=== PATIENT | female | born 1995 | race Two or more races ===

== ENCOUNTER 2021-08-07 12:10 | Emergency (ER) | payer SELFPAY ==
[~2021-08-07] VITALS: Ht 162.6 cm; Wt 62.0 kg
[2021-08-07] MEDS ORDERED: IBUPROFEN 100 MG/5 ML ORAL.SUSP. PO ONE (12:45)
[2021-08-07] MEDS ORDERED: DEXAMETHASONE SOD PHOS 20 MG/5 ML VIAL. IM ONE (12:45)
[2021-08-07] MEDS ORDERED: AMOXICILLIN 250 MG CAPSULE. PO ONE (13:45)
--- NOTE | 2021-08-07 14:37 | PHYS DOC ---
Past Medical History Past Surgical History: No Surgical History General Adult EDM: Chief Complaint: SORE THROAT HPI: HPI: Patient is a 25-year-old female presents emergency department concerning sore throat for the past 4 days. Patient denies taking any pain medication at home other than trying Motrin yesterday for feverish symptoms however did not take her temperature. Patient denies nausea, vomiting, diarrhea. Denies changes in voice tones, denies pain to her ears, denies nasal or chest congestion, denies chest pain cough or shortness of breath. Patient reports it is hard to swallow. Patient denies other physical complaints or physical concerns. Patient reports her last menstrual cycle was 2 weeks ago with normal duration of flow. Patient denies receiving the COVID-19 virus vaccination series. Review of Systems: Review of Systems: 14 body systems of review of systems have been reviewed. See HPI for pertinent positives and negative responses, otherwise all other systems are negative, nonpertinent or noncontributory. Constitutional: Negative except as outlined in HPI above. Skin: Negative except as outlined in HPI above. Eyes: Negative except as outlined in HPI above. HENT: Negative except as outlined in HPI above. Respiratory: Negative except as outlined in HPI above. Cardiovascular: Negative except as outlined in HPI above. GI: Negative except as outlined in HPI above. : Negative except as outlined in HPI above. Musculoskeletal: Negative except as outlined in HPI above. Integument: Negative except as outlined in HPI above. Neurologic: Negative except as outlined in HPI above. Endocrine: Negative except as outlined in HPI above. Lymphatic: Negative except as outlined in HPI above. Psychiatric: Negative except as outlined in HPI above. Heart Score: C/O Chest Pain: No Risk Factors: Risk Factors: DM, Current or recent (<one month) smoker, HTN, HLP, family history of CAD, obesity. Risk Scores: Score 0 - 3: 2.5% MACE over next 6 weeks - Discharge Home Score 4 - 6: 20.3% MACE over next 6 weeks - Admit for Clinical Observation Score 7 - 10: 72.7% MACE over next 6 weeks - Early Invasive Strategies Current Medications: Current Medications Medications (Trade) Dose Ordered Sig/Jean Claude Start Time Stop Time Status Last Admin Dose Admin Amoxicillin (Amoxil) 500 mg 1X ONCE 08/07/21 13:45 08/07/21 13:53 DC Dexamethasone Sodium Phosphate (Decadron) 10 mg 1X ONCE 08/07/21 12:45 08/07/21 12:49 DC 08/07/21 13:06 10 MG Ibuprofen (Children'S Motrin) 600 mg 1X ONCE 08/07/21 12:45 08/07/21 12:49 DC 08/07/21 13:04 600 MG Allergies: Allergies: Allergies Coded Allergies Type Severity Reaction Last Updated Verified No Known Drug Allergies 08/07/21 No Physical Exam: PE: Constitutional: Well developed, well nourished, no acute distress, non-toxic appearance. 25-year-old female in no apparent distress. HENT: Normocephalic, atraumatic. Normal voice tones, no drooling, no trismus, bilateral anterior cervical lymphadenopathy, bilateral submental lymphadenopathy, no other lymphadenopathy of the head or neck appreciated, oropharynx moist, no uvular edema or uvular deviation, no laryngeal edema appreciated, bilateral tonsillar erythema with cobblestoning and exudative drainage, no postnasal drip appreciated. Eyes: Conjunctiva normal, no discharge. Neck: Normal range of motion, no stridor. Cardiovascular: No cyanosis appreciated, distal cap refill less than 2 seconds. Lungs & Thorax: Patient is in no respiratory distress, no audible adventitious lung sounds appreciated. Abdomen: Nontender, no abnormalities noted. Skin: Warm, dry, no erythema, no rash. Back: No tenderness, no deformities. Extremities: No tenderness, no cyanosis, no clubbing, ROM intact, no edema. Neurologic: Alert and oriented X 3, normal motor function, normal sensory function, no focal deficits noted. Psychologic: Affect normal, judgement normal, mood normal. Current Patient Data: Vital Signs: Vital Signs Date Time Temp Pulse Resp B/P (MAP) Pulse Ox O2 Delivery O2 Flow Rate FiO2 08/07/21 12:22 98.5 71 15 141/61 (87) 99 Room Air 98.5 EKG: EKG: [] Radiology/Procedures: Radiology/Procedures: [] Course & Med Decision Making: Course & Med Decision Making Pertinent Labs and Imaging studies reviewed. (See chart for details) 25-year-old female, vital signs reviewed, presents emergency department concerning sore throat past 4 days. Physical examination consistent with strep pharyngitis, with patient's history of nonvaccination for Covid virus, will order rapid flu, Covid test, rapid strep testing. Will give IM injection of Decadron and Motrin suspension for 8 out of 10 throat pain. . Patient's rapid strep positive, pending Covid testing at this time, flu is negative, will start antibiotic regimen amoxicillin 500 mg p.o. Patient is Covid testing is negative, discussed findings with patient, oral antibiotic regimen at home, reviewed side effects with patient, patient is amenable to ED discharge planning. Diagnosis strep pharyngitis. Discussed with the patient all findings and diagnostic testing as well as the need to follow-up with their primary care provider for further evaluation and treatment or return to the ED if any new or worsening symptoms. Strict return precautions were also discussed at length, the patient voiced understanding and agreement with the discharge planning. The patient was nontoxic in appearance, in no apparent distress, and hemodynamically stable at the time of disposition. Dragon Disclaimer: DragScaffold Disclaimer: This electronic medical record was generated, in whole or in part, using a voice recognition dictation system. Departure Departure Impression: Primary Impression: Strep pharyngitis Disposition: 01 HOME / SELF CARE / HOMELESS Condition: GOOD Referrals: NO PCP (PCP) Patient Instructions: Strep Throat, Viral and Bacterial Pharyngitis Additional Instructions: You were seen today in the emergency department for a sore throat. A test for flu, COVID-19 virus, and strep throat was done today in the emergency department, you do not have the flu, you do not have COVID-19 virus, you do however have strep throat. Your first antibiotic was started today in the emergency department, I have prescribed for you amoxicillin antibiotic that you will take 2 times a day for the next 10 days. Please take as directed. Please follow-up with your primary care physician for ongoing evaluation of your strep throat. Return to the emergency department for worsening symptoms or other concerns. Thank you for visiting our Emergency Department. It was a pleasure taking care of you today in the emergency department and we appreciate you trusting us with your care. If any additional problems come up don't hesitate to return to visit us. Please follow up with your primary care provider so they can plan additional care if needed and know about the problem that you had. If symptoms worsen come back to the Emergency Department. Any concerning symptoms that start such as chest pain, shortness of air, weakness or numbness on one side of the body, running high fevers or any other concerning symptoms return to the ER. Hoy lo vieron en el departamento de emergencias por dolor de garganta. Hoy se realiz linnette prueba de gripe, virus COVID-19 y faringitis estreptoccica en el departamento de emergencias, no tiene gripe, no tiene virus COVID-19, sin embargo tiene faringitis estreptoccica. Edgar primer antibitico comenz michael en el departamento de emergencias, le he recetado el antibitico amoxicilina que lisy 2 veces al da tee los prximos 10 holt. Tmelo segn las indicaciones. Nathan un seguimiento con edgar mdico de atencin primaria para linnette e valuacin continua de edgar faringitis estreptoccica. Regrese al departamento de emergencias si los sntomas empeoran u otras inquietudes. Yolette por visitar nuestro Departamento de Emergencias. Fue un placer atenderlo michael en el departamento de emergencias y le agradecemos que nos haya confiado edgar atencin. Si surge algn problema adicional, no dude en volver a visitarnos. Nathan un s eguimiento con edgar proveedor de atencin primaria para que puedan planificar atencin adicional si es necesario y conocer el problema que tuvo. Si los sntomas empeoran, regrese al Departamento de Emergencias. Cualquier sntoma preocupante que comience, gaby dolor en el pecho, falta de aire, debilidad o entumecimiento en un lado del cuerpo, fiebre rosa o cualquier otro sntoma preoc upante, regresa a la luís de emergencias. EMERGENCY DEPARTMENT GENERAL DISCHARGE INSTRUCTIONS Thank you for coming to [facility] Emergency Department (ED) today and trusting us with you care. We trust that you had a positive experience in our Emergency Department. If you wish to speak to the department management, you may call the Director at [phone]. YOUR FOLLOW UP INSTRUCTIONS ARE FOLLOWS: 1. Do you have a private Doctor? If you do not have a private doctor, please ask for a resource list of physicians or clinics that may be able to assist you with follow up care. 2. The Emergency Physicain has interpreted your x-rays. The X-Ray specialist will also review them. If there is a change in the findings, you will be notified in 48 hours when at all possible. 3. A lab test or culture has been done, your results will be reviewed and you will be notified if you need a change in treatment. ADDITIONAL INSTRUCTIONS AND INFORMATION: 1. Your care today has been supervised by a physician who is specially trained in emergency care. Many problems require more than one evaluation for a complete diagnosis and treatment. We recommend that you schedule your follow up appointment as recommended to ensure complete treatment of you illness or injury. If you are unable to obtain follow up care and continue to have a problem, or if your condition worsens, we recommend that you return to the ED. 2. We are not able to safely determine your condition over the phone nor are we able to give sound medical advice over the phone. For these safety reasons, if you call for medical advice we will ask you to come to the ED for further evaluation. 3. If you have any questions regarding these discharge instructions please call the ED at [phone]. SAFETY INFORMATION: In the interest of safety, wellness, and injury prevention; we encourage you to wear your sealbelt, if you smoke; quite smoking, and we encourage family to use a protective helmet for bicycling and other sporting events that present an increased risk for head injury. IF YOUR SYMPTOMS WORSEN OR NEW SYMPTOMS DEVELOP, OR YOU HAVE CONCERNS ABOUT YOUR CONDITION; OR IF YOUR CONDITION WORSENS WHILE YOU ARE WAITING FOR YOUR FOLLOW UP APPOINTMENT; EITHER CONTACT YOUR PRIMARY CARE DOCTOR, THE PHYSICIAN WHOSE NAME AND NUMBER YOU WERE GIVEN, OR RETURN TO THE ED IMMEDIATELY. Scripts Amoxicillin (AMOXICILLIN) 500 Mg Capsule 1 CAP PO BID for 10 Days, #20 CAP 0 Refills Prov: JESUS PEACOCK SHEETER MACHINE OPERATOR 08/07/21 Ibuprofen (IBUPROFEN) 600 Mg Tablet 600 MG PO PRN Q6HRS PRN for INFLAMMATION, #30 TAB 0 Refills Prov: JESUS PEACOCK APRN 08/07/21 JESUS PEACOCK APRN Aug 07, 2021 14:37
[2021-08-07 15:00] LABS: INFLUENZA A PATIENT NEGATIVE (NEGATIVE); INFLUENZA B PATIENT NEGATIVE (NEGATIVE)
[2021-08-07] MEDS ORDERED: IBUP-1007 PO (15:57)
[2021-08-07] MEDS ORDERED: AMOX500C PO (15:57)
[2021-08-07 16:11] VITALS: BP 127/75
--- NOTE | 2021-08-10 10:47 | NUR ---
IP: Attempted to contact pt concerning covid results. No answer, left a voicemail to return the call.
--- NOTE | 2021-08-11 09:49 | NUR ---
IP: Informed pt of negative covid test. Pt verbalized understanding.
== END 2021-08-07 16:12 | disposition home or self-care (01) ==
LOC: ER 12:10
DX: J02.0 Streptococcal pharyngitis (principal); B95.0 Streptococcus, group A, as the cause of diseases classified elsewhere; Z20.822 Contact with and (suspected) exposure to COVID-19
CPT/HCPCS: 87426; 87804; 87880; 96372; 99283; J1100; U0003; U0005

== ENCOUNTER 2022-02-26 21:49 | Emergency (ER) | payer SELFPAY ==
[~2022-02-26] VITALS: Ht 170.2 cm; Wt 59.0 kg
[~2022-02-26 21:49] MED LIST: AMOX500C PO; IBUP-1007 PO
[2022-02-26] MEDS ORDERED: ONDANSETRON PF 4 MG/2 ML VIAL. IVP ONE (22:15)
[2022-02-26] MEDS ORDERED: KETOROLAC 30 MG/ML VIAL. IVP ONE (22:15)
[2022-02-26] MEDS ORDERED: IV RINGERS,LACTATED 1000ML 1,000 ML IV SCH (22:15)
[2022-02-26 22:50] LABS: BASO % 0 % (0-3); EOS # 0.1 x10^3/uL (0.0-0.7); EOS % 1 % (0-3); HEMATOCRIT 39.2 % (36.0-47.0); HEMOGLOBIN 13.2 g/dL (12.0-15.5); LYMPH # 1.2 x10^3/uL (1.0-4.8); LYMPH % 8 % (24-48); MEAN CORPUSCULAR HEMOGLOBIN 29 pg (25-35); MEAN CORPUSCULAR HGB CONC 34 g/dL (31-37); MEAN CORPUSCULAR VOLUME 85 fL (79-100); MONO # 0.6 x10^3/uL (0.0-1.1); MONO % 4 % (0-9); NEUT # 12.6 x10^3/uL (1.8-7.7); NEUT % 87 % (31-73); PLATELET COUNT 260 x10^3/uL (140-400); RED CELL DISTRIBUTION WIDTH 13.3 % (11.5-14.5); WHITE BLOOD COUNT 14.5 x10^3/uL (4.0-11.0)
[2022-02-26 23:07] LABS: CREATININE 0.7 mg/dL (0.6-1.0); GFR 101.1; POTASSIUM 3.8 mmol/L (3.5-5.1)
[2022-02-26 23:11] LABS: ALBUMIN 3.9 g/dL (3.4-5.0); ALBUMIN/GLOBULIN RATIO 0.9 (1.0-1.7); TOTAL BILIRUBIN 0.7 mg/dL (0.2-1.0); TOTAL PROTEIN 8.1 g/dL (6.4-8.2)
[2022-02-26 23:12] LABS: BARBITURATES NEG (NEG); BENZODIAZEPINES NEG (NEG); CANNABINOIDS NEG (NEG); COCAINE NEG (NEG); METHADONE NEG (NEG); OPIATES NEG (NEG); PHENCYCLIDINE NEG (NEG)
[2022-02-26 23:20] LABS: AMPHETAMINE/METHAMPHETAMINE NEG (NEG)
[2022-02-26 23:24] LABS: BACTERIA,URINE FEW /HPF (0-FEW); RBC,URINE OCC /HPF (0-2); WBC,URINE OCC /HPF (0-4)
[2022-02-26] MEDS ORDERED: LIDO:MAALOX 1:1 20 ML SINGLE DOSE. SWSW ONE (23:30)
--- NOTE | 2022-02-26 23:59 | PHYS DOC ---
Past Medical History Past Medical History: No Pertinent History (LUCÍA LEE) Past Surgical History: No Surgical History (LUCÍA LEE) Smoking Status: Never Smoker Alcohol Use: None Drug Use: None (LUCÍA LEE) General Adult EDM: Chief Complaint: ABDOMINAL PAIN HPI: HPI: Patient is a 26 year old female who presents with upper abdominal pain that began around 1600 this afternoon. Patient states the pain is 10/10 and nonradiating. She reports that it is colicky in nature, abating and then intensifying in waves. Patient reports she has only eaten beef broth soup today. She denies any inciting events, exacerbating factors or remitting f actors. Patient reports associated nausea and 3 episodes of emesis. Patient denies fever, chills, generalized weakness, hemoptysis, diarrhea, constipation. First day of last menstrual period was about 15 days ago. (LUCÍA LEE) Review of Systems: Review of Systems: Constitutional: See HPI Eyes: Denies change in visual acuity, visual field deficits or discharge HENT: Denies ear pain, nasal congestion or sore throat Respiratory: Denies cough or shortness of breath Cardiovascular: Denies chest pain, palpitations or edema GI: See HPI : Denies dysuria or hematuria Musculoskeletal: Denies back pain or joint pain Integument: Denies rash or other skin lesion Neurologic: Denies headache, focal weakness or sensory changes (LUCÍA LEE) Heart Score: C/O Chest Pain: No (LUCÍA LEE) C/O Chest Pain: No (ALEX GALLOWAY MD) Current Medications: Current Medications Medications (Trade) Dose Ordered Sig/Jean Claude Start Time Stop Time Status Last Admin Dose Admin Ketorolac Tromethamine (Toradol 30mg Vial) 15 mg 1X ONCE 02/26/22 22:15 02/26/22 22:16 DC 02/26/22 22:15 15 MG Multi-Ingredient Mouthwash/Gargle (Gi Cocktail) 20 ml 1X ONCE 02/26/22 23:30 02/26/22 23:35 DC Ondansetron HCl (Zofran) 4 mg 1X ONCE 02/26/22 22:15 02/26/22 22:16 DC 02/26/22 22:15 4 MG Ringer's Solution 1,000 ml @ 1,000 mls/hr Q1H 02/26/22 22:15 02/26/22 23:14 DC 02/26/22 22:15 1,000 MLS/HR (LUCÍA LEE) Allergies: Allergies: Allergies Coded Allergies Type Severity Reaction Last Updated Verified No Known Drug Allergies 08/07/21 No (LUCÍA LEE) Physical Exam: PE: Constitutional: Well developed, well nourished, non-toxic appearance, tearful and holding her hand to her upper abdomen. HENT: Normocephalic, atraumatic, bilateral external ears normal, oropharynx moist, no oral exudates, nose normal. Eyes: EOMI, conjunctiva normal, no discharge. Neck: Normal range of motion, no stridor. Cardiovascular: Heart regular rate and rhythm. No apparent murmurs, rubs or gallops Lungs & Thorax: Equal thoracic expansion, no increased work of breathing. Abdomen: Bowel sounds normal, soft, upper abdominal tenderness with voluntary guarding, no rebound, negative Melgar sign, no masses, no pulsatile masses. Skin: Warm, dry, no erythema, no rash. Extremities: No cyanosis, no clubbing, ROM intact, no edema. Neurologic: Alert and oriented x4, normal motor function, normal sensory function, no focal deficits noted. (LUCÍA LEE) Current Patient Data: Labs: Laboratory Tests Test 02/26/22 22:43 02/26/22 22:45 02/26/22 22:53 White Blood Count 14.5 x10^3/uL (4.0-11.0) H Red Blood Count 4.60 x10^6/uL (3.50-5.40) Hemoglobin 13.2 g/dL (12.0-15.5) Hematocrit 39.2 % (36.0-47.0) Mean Corpuscular Volume 85 fL (79-100) Mean Corpuscular Hemoglobin 29 pg (25-35) Mean Corpuscular Hemoglobin Concent 34 g/dL (31-37) Red Cell Distribution Width 13.3 % (11.5-14.5) Platelet Count 260 x10^3/uL (140-400) Neutrophils (%) (Auto) 87 % (31-73) H Lymphocytes (%) (Auto) 8 % (24-48) L Monocytes (%) (Auto) 4 % (0-9) Eosinophils (%) (Auto) 1 % (0-3) Basophils (%) (Auto) 0 % (0-3) Neutrophils # (Auto) 12.6 x10^3/uL (1.8-7.7) H Lymphocytes # (Auto) 1.2 x10^3/uL (1.0-4.8) Monocytes # (Auto) 0.6 x10^3/uL (0.0-1.1) Eosinophils # (Auto) 0.1 x10^3/uL (0.0-0.7) Basophils # (Auto) 0.0 x10^3/uL (0.0-0.2) Sodium Level 141 mmol/L (136-145) Potassium Level 3.8 mmol/L (3.5-5.1) Chloride Level 103 mmol/L (98-107) Carbon Dioxide Level 28 mmol/L (21-32) Anion Gap 10 (6-14) Blood Urea Nitrogen 9 mg/dL (7-20) Creatinine 0.7 mg/dL (0.6-1.0) Estimated GFR (Cockcroft-Gault) 101.1 BUN/Creatinine Ratio 13 (6-20) Glucose Level 97 mg/dL (70-99) Calcium Level 9.0 mg/dL (8.5-10.1) Total Bilirubin 0.7 mg/dL (0.2-1.0) Aspartate Amino Transferase (AST) 11 U/L (15-37) L Alanine Aminotransferase (ALT) 14 U/L (14-59) Alkaline Phosphatase 65 U/L (46-116) Total Protein 8.1 g/dL (6.4-8.2) Albumin 3.9 g/dL (3.4-5.0) Albumin/Globulin Ratio 0.9 (1.0-1.7) L Lipase 139 U/L (73-393) Urine Collection Type Unknown Urine Color (Auto) Yellow Urine Turbidity Clear Urine pH (Auto) 8.0 (<5.0-8.0) Urine Specific Odin 1.029 (1.000-1.030) Urine Protein (Auto) 30 mg/dL (Negative) Urine Glucose (Auto)(UA) Negative mg/dL (Negative) Urine Ketones (Auto) >150 mg/dL (Negative) Urine Blood (Auto) Negative (Negative) Urine Nitrite Negative (Negative) Urine Bilirubin (Auto) Negative (Negative) Urine Urobilinogen (Auto) Normal mg/dL (Normal) Urine Leukocyte Esterase (Auto) Negative (Negative) Urine RBC Occ /HPF (0-2) Urine WBC Occ /HPF (0-4) Urine Squamous Epithelial Cells Few /LPF Urine Bacteria Few /HPF (0-FEW) Urine Mucus Mod /LPF Urine Opiates Screen Neg (NEG) Urine Methadone Screen Neg (NEG) Urine Barbiturates Neg (NEG) Urine Phencyclidine Screen Neg (NEG) Urine Amphetamine/Methamphetamine Neg (NEG) Urine Benzodiazepines Screen Neg (NEG) Urine Cocaine Screen Neg (NEG) Urine Cannabinoids Screen Neg (NEG) Urine Ethyl Alcohol Neg (NEG) POC Urine HCG, Qualitative Hcg negative (Negative) Laboratory Tests 02/26/22 22:43 Laboratory Tests 02/26/22 22:43 Vital Signs: Vital Signs Date Time Temp Pulse Resp B/P (MAP) Pulse Ox O2 Delivery O2 Flow Rate FiO2 02/26/22 21:49 97.7 86 20 127/77 (94) 97 Room Air 97.7 (LUCÍA LEE) Radiology/Procedures: Radiology/Procedures: [facility] [address] [place] [address] IMAGING REPORT Signed PATIENT: FLORINA ARANGO SACCOUNT: [id number] : 1995 LOCATION: ER AGE: 26 SEX: F EXAM STATUS: REG ER ORD. PHYSICIAN: ALEX GALLOWAY MD REASON: epigastric pain PROCEDURE: CT ABD PEL W/ORAL CONTRST ONLY PQRS Compliance Statement: One or more of the following individualized dose reduction techniques were utilized for this examination: 1. Automated exposure control 2. Adjustment of the mA and/or kV according to patient size 3. Use of iterative reconstruction technique CT ABDOMEN+PELVIS W Clinical Indication: Reason: epigastric pain / Spl. Instructions: [phone] / History: Comparison: None. Technique: Helical CT imaging of the abdomen and pelvis is performed without IV contrast. Oral contrast is administered. Findings: Evaluation of solid organs is limited without IV contrast, decreasing sensitivity for detection of abnormal findings. The lung bases are clear. Cardiac size normal. Gallbladder is contracted. The liver, spleen, pancreas, adrenal glands, ab dominal aorta, and kidneys are normal. The stomach is unremarkable. There is no small bowel obstruction. The appendix is normal. There is no colon wall thickening. No abdominal adenopathy or free fluid. The urinary bladder is normal. There is a small probable right ovary functional cyst. Left ovary is unremarkable. Uterus is anteverted. There is no pelvic free fluid. No acute bone abnormality. IMPRESSION: No acute abdominal or pelvic abnormality. Electronically signed by: Dewey Sharma MD (02/27/2022 5:12 AM) [facility] DICTATED and SIGNED BY: DEWEY SHARMA MD DATE: 02/27/22 0507 [facility] [address] [place] [address] IMAGING REPORT Signed PATIENT: FLORINA ARANGO SACCOUNT: [id number] : 1995 LOCATION: ER AGE: 26 SEX: F EXAM STATUS: REG ER ORD. PHYSICIAN: LUCÍA LEE REASON: upper abdominal pain (RUQ, epigastric, LUQ) PROCEDURE: ABDOMEN LTD Right upper quadrant abdominal ultrasound History: Reason: upper abdominal pain (RUQ, epigastric, LUQ) / Spl. Instructions: / History: Comparison: None. Technique: Transabdominal ultrasound images are obtained. Findings: The liver is normal in echotexture. The liver measures 11.7 cm. Ultrasound is not sensitive for detecting solid liver lesions. Portal flow is hepatopetal. The common bile duct diameter measures 2 mm. The gallbladder wall is not thickened. Per report, sonographic Melgar sign is negative. There is no cholelithiasis or pericholecystic fluid. The visualized pancreas is homogeneous. The right kidney is normal in echotexture and measures 10.3 cm. Corti comedullary differentiation is preserved. There is no hydronephrosis. IVC is unremarkable. IMPRESSION: Unremarkable right upper quadrant ultrasound. Electronically signed by: Dewey Sharma MD (02/27/2022 3:08 AM) [facility] DICTATED and SIGNED BY: DEWEY SHARMA MD DATE: 02/27/22 0308 (ALEX GALLOWAY MD) Course & Med Decision Making: Course & Med Decision Making Pertinent Labs and Imaging studies reviewed. (See chart for details) Patient is a 26-year-old female presenting with severe upper abdominal pain that began around 1600 this afternoon. Initial work-up includes labs, urinalysis. Labs significant for elevated white blood cell count with neutrophilia and ketones in the urine. Abdominal ultrasound ordered. Because the patient's pain is not well relieved by IV fentanyl or GI cocktail, CT abdomen pelvis without contrast ordered under advisement of Dr. Galloway, attending in the emergency dep artment. Imaging studies are pending at the time of my departure from the emergency department. Thorough handoff was given to Dr. Galloway, who will address any abnormalities seen on imaging studies. (LUCÍA LEE) Course & Med Decision Making Work up unremarkable. CT limited to PO contrast due to national shortage. Pain help with GI cocktail. will cover patient for gastritis with return precautions (ALEX GALLOWAY MD) Dragon Disclaimer: Dragon Disclaimer: This electronic medical record was generated, in whole or in part, using a voice recognition dictation system. (LUCÍA LEE) Departure Departure Impression: Primary Impression: Abdominal pain Disposition: HOME / SELF CARE / HOMELESS Condition: STABLE Referrals: NO PCP (PCP) Patient Instructions: Abdominal Pain Scripts Famotidine (FAMOTIDINE) 40 Mg Tablet 40 MG PO HS for antacid for 30 Days, #30 TAB Prov: LAEX GALLOWAY MD 02/27/22 Sucralfate (CARAFATE) 1 Gm Tablet 1 TAB PO QID PRN for ABDOMINAL PAIN for 30 Days, #120 TAB 0 Refills Prov: ALEX GALLOWAY MD 02/27/22 LUCÍA LEE February 26, 2022 23:59 ALEX GALLOWAY MD February 27, 2022 05:26
--- NOTE | 2022-02-27 03:10 | RAD ---
Right upper quadrant abdominal ultrasound History: Reason: upper abdominal pain (RUQ, epigastric, LUQ) / Spl. Instructions: / History: Comparison: None. Technique: Transabdominal ultrasound images are obtained. Findings: The liver is normal in echotexture. The liver measures 11.7 cm. Ultrasound is not sensitive for detec ting solid liver lesions. Portal flow is hepatopetal. The common bile duct diameter measures 2 mm. The gallbladder wall is not thickened. Per report, sonographic Melgar sign is negative. There is no c holelithiasis or pericholecystic fluid. The visualized pancreas is homogeneous. The right kidney is normal in echotexture and measures 10.3 cm. Corticomedullary differentiation is preserved. There is no hydronephrosis. IVC is unremarkable. IMPRESSION: Unremarkable right upper quadrant ultrasound. Electronically signed by: Dewey Sharma MD (02/27/2022 3:08 AM) [facility]
[2022-02-27] MEDS ORDERED: IOHEXOL 240 MG/ML 50ML VIAL. PO ONE (03:30)
[2022-02-27] MEDS ORDERED: CONTRAST GIVEN. MC PRN (03:30)
[2022-02-27] MEDS ORDERED: MORPHINE SULFATE 4 MG/ML INJ. IV ONE (03:45)
--- NOTE | 2022-02-27 05:15 | RAD ---
PQRS Compliance Statement: One or more of the following individualized dose reduction techniques were utilized for this examinat ion: 1. Automated exposure control 2. Adjustment of the mA and/or kV according to patient size 3. Use of iterative reconstruction technique CT ABDOMEN+PELVIS W Clinical Indication: Reason: epigastric pain / Spl. Instructions: [id number] / History: Comparison: None. Technique: Helical CT imaging of the abdomen and pelvis is performed without IV contrast. Oral contra st is administered. Findings: Evaluation of solid organs is limited without IV contrast, decreasing sensitivity for detection of ab normal findings. The lung bases are clear. Cardiac size normal. Gallbladder is contracted. The liver, spleen, pancreas, adrenal glands, abdominal aorta, and kidneys are normal. The stomach is unremarkable. There is no small bowel obstruction. The appendix is normal. There is no colon wall thickening. No abdominal adenopathy or free fluid. The urinary bladder is normal. There is a small probable right ovary functional cyst. Left ovary is u nremarkable. Uterus is anteverted. There is no pelvic free fluid. No acute bone abnormality. IMPRESSION: No acute abdominal or pelvic abnormality. Electronically signed by: Dewey Sharma MD (02/27/2022 5:12 AM) [facility]
[2022-02-27] MEDS ORDERED: SUCR1TAB35 PO (05:25)
[2022-02-27] MEDS ORDERED: FAMO40TA4 PO (05:25)
[2022-02-27] MEDS ORDERED: SUCRALFATE 1 GM TABLET. PO ONE (05:30)
[2022-02-27 08:11] VITALS: BP 118/58
== END 2022-02-27 08:16 | disposition home or self-care (01) ==
LOC: ER 21:49
DX: R10.10 Upper abdominal pain, unspecified (principal)
CPT/HCPCS: 36415; 74176; 76705; 80053; 80307; 81001; 81025; 83690; 85025; 96361; 96374; 96375; 99285; J1885; J2405; J7120